=== PATIENT | female | born 1960 | race Caucasian/White ===

== ENCOUNTER 2023-02-08 11:24 | Outpatient (AMB) | payer OTHER, SELFPAY ==
--- NOTE | 2023-02-08 11:51 | AM.OFFWIN_ITS ---
Intake Vital Signs 02/08/23 11:54 02/08/23 11:54 Height 5 ft 2 in 5 ft 3 in Weight 189 lb 2 oz BMI 33.5 BP 110/72 Blood Pressure Location Rt brachial Position Sitting Pulse 84 Pulse Source Pulse Oximeter Temp 97.9 F Temp Source Temporal Artery Scan Pulse Oximetry (%) 98 Oxygen Delivery Method Room Air Intake Visit Reasons: EP, sore throat, cough ([phone]) Intake Note: pt is here for c/o sore throat, cough, and green mucus that started a few months ago but improved. Pt states it recently came back within the past few days. Patient Tobacco Use Status: Never used Tobacco Allergies codeine Adverse Reaction (Mild, Verified 02/08/23 11:52) Insomnia Do you need a note to return to daycare/school/sports/work: Yes HPI HPI Comments History of Present Illness Details 62-year-old female who presents for coug h chest congestion times 1 month. The intermittent lasting 3 or 4 days of the time. Denies fevers but does endorse chills denies nausea vomiting PFSH Social History (Updated 02/08/23 @ 11:56 by Meagan Chin MA) Alcohol intake: current Alcohol intake frequency: a few times a month Patient Tobacco Use Status: Never used Tobacco Review of Systems Resp Reports change in phlegm color, Reports chest congestion, Reports cough and Reports excessive phlegm production Physical Exam Vital Signs: Last Vital Signs Temp 97.9 F 02/08/23 11:54 Pulse 84 02/08/23 11:54 BP 110/72 02/08/23 11:54 Pulse Ox 98 02/08/23 11:54 Oxygen Delivery Method Room Air 02/08/23 11:54 BMI result Body Mass Index 33.5 Const General: cooperative, no acute distress and alert Orientation/consciousness: patient oriented x3 Limitations: no limitations HEENT Head: Yes normal to inspection Ears: hearing grossly normal bilaterally and external ears normal General nose exam: Normal external nose present Eyes General: appearance normal, both eyes and all related structures Neck Neck: Yes normal visual inspection Chest Chest palpation & inspection: normal inspection of the chest Resp Other: Fine crackles the upper lobes Effort & Inspection: normal respiratory effort, able to speak in complete sentences and no audible wheezes Cardio Rate: regular rate Rhythm: regular rhythm GI Inspection: Yes normal to inspection Palpation (GI): Soft to palpation and nontender Skin General skin exam: no rashes or lesions noted Neuro General: patient oriented x3 Psych Appearance: grossly normal Mental Status: mental status grossly normal Speech and movement: Normal speech and movement present Affect: normal affect Attitude: cooperative Thought process: Normal thought process present Thought content: Normal thought content present Assessment & Plan Assessment & Plan (1) Respiratory infection: Code(s): J98.8 - Other specified respiratory disorders Plan: ESS. Some fine crackles heard the upper lobe. Suspect upper respiratory versus lower respiratory tract infection of viral nature. Will should chest x-ray to evaluate for pneumonia. Chest x-ray negative for pneumonia. Likely bronchitis will prescribe symptomatic treatment Discharge instructions, follow up and treatment are discussed with patient in my usual fashion. Alternatives in treatment are also discussed. The patient will return for worsening symptoms or as needed. Advised that any labs/imaging ordered will be followed up on and contact made if further treatment needed. Counseled that patient's condition may require further evaluation and/or treatment. Symptoms of concern for worsening disorder discussed in detail in my customary manner. Patient does verbalize understanding of the plan, there are no apparent barriers to communication. The patient is given the opportunity to ask questions and have them answered to his/her satisfaction Orders: Orders XR chest 2V Today R05.9 - Cough, unspecified Medications: New albuterol sulfate 90 mcg/actuation 2 puffs inhalation 6XD PRN 6.7 grams 0RF shortness of breath or wheezing benzonatate 100 mg PO BID 10 caps 0RF prednisone 40 mg (2 x 20 mg) PO DAILY 10 tabs 0RF 5 days Patient Instructions: You were seen and evaluated for your cold-like symptoms. We cannot say for sure at this time examination is reassuring. We believe is likely suffering from a viral URI. Recommend continued symptomatic treatment using saline rinses Tylenol Motrin as needed. You have been prescribed albuterol prednisone and Tessalon Perles. You should return to clinic or the emergency department if you experience any new worsening symptoms such as chest pain, shortness of breath, nausea, vomiting, abdominal pain, or any concerning symptoms I mentioned above. Coding Level of Care Code Est Pt Level 3 (46256) Diagnoses Respiratory infection J98.8
[2023-02-08 11:54] VITALS: BP 110/72; PULSE 84; TEMP 36.6; O2SAT 98; BMI 33.5
== END 2023-02-08 12:44 | disposition home or self-care (01) ==
PROVIDERS: Visit Provider Physician Assistant
DX: J98.8 Other specified respiratory disorders (principal)
CPT/HCPCS: 99213

== ENCOUNTER 2023-02-08 12:20 | Outpatient (REF) | payer OTHER, SELFPAY ==
--- NOTE | ~2023-02-08 | XR_ITS ---
EXAMINATION: XR CHEST CLINICAL INFORMATION: Cough COMPARISON: None available. TECHNIQUE: 2 views of the chest were obtained. FINDINGS: Bilateral low lung volumes. Slight bibasilar atelectasis. No pneumothorax. Trachea is midline. Cardiomediastinal silhouette is not enlarged. No large pleural effusion. Slight levocurvature of the thoracolumbar spine. Soft tissues are unremarkable XR/XR chest 2V IMPRESSION: 1. Bilateral low lung volumes. 2. Slight bibasilar atelectasis.
== END 2023-02-08 12:21 | disposition home or self-care (01) ==
LOC: HO.HMGCX 12:20
PROVIDERS: PCP Family Medicine; Visit Provider Physician Assistant
DX: R05.9 Cough, unspecified (principal)
CPT/HCPCS: 71046

== ENCOUNTER 2024-11-20 12:14 | Outpatient (REF) | payer OTHER, SELFPAY ==
[2024-11-20 17:27] LABS: Resp Syncy Virus RNA Qual PCR NEGATIVE (Negative); SARS COV2 PCR INHOUSE NEGATIVE (Negative)
== END 2024-11-20 12:15 | disposition home or self-care (01) ==
LOC: HO.LNP 12:14
PROVIDERS: PCP Family Medicine; Visit Provider Physician Assistant Medical
DX: R09.89 Other specified symptoms and signs involving the circulatory and respiratory systems (principal); J02.9 Acute pharyngitis, unspecified; R05.9 Cough, unspecified; H66.002 Acute suppurative otitis media without spontaneous rupture of ear drum, left ear; Z13.89 Encounter for screening for other disorder; Z11.52 Encounter for screening for COVID-19
CPT/HCPCS: 87637; 87880

== ENCOUNTER 2024-11-20 12:14 | Outpatient (AMB) | payer OTHER, SELFPAY ==
--- OUTSIDE RECORDS SUMMARY | 2024-11-20 12:34 | XMS_ITS | Patient Health Record ---
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 Name Role Phone Kevin OWEN, Reena Primary Care Provider Eleonora Nino Unavailable [phone] Allergies Allergen (clinical drug ingredient) Drug/Non Drug Allergy documented on EMR Reaction Allergy Type Onset Date Status codeine Codeine Can't sleep Drug Allergy Activ e Reason For Referral No Information Medications Medication SIG (Take, Route, Fr equency, Duration) Notes Start Date End Date Status Levothyroxine Sodium Active Immunizations Vaccine Route Administration Date Status Comme nts Influenza Unknown 12/24/2023 Administered Social History Tobacco Use: Social History Observation Description Date Details (start date - stop date) Never Smoker NA - NA Tobacco use other than smoking: Question Answer Notes Are you an other tobacco user? No Tobacco Control (Standard) Question Answer Notes Tobacco use: Nonsmoker Additional Findings: Tobacco non-user Current no nsmoker AUDIT-C (Standard) Question Answer Notes Did you have a drink contain ing alcohol in the past year? Yes How often did you have a dri nk containing alcohol in the past year? 2 to 4 times a month (2 points) How many drinks did you have on a typical day when you were drinking in the past year? 1 or 2 drinks (0 point) How often did you have six o r more drinks on one occasion in the past year? 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 and Ingrown nail L60.0 Assessments Encounter Date Diagnosis (ICD Code) Assessment Notes Treatment Notes Treatment Clinical Notes Section Notes 10/31/2024 Pain in left ankle and joints of left foot (ICD-10 - M25.572) 10/31/2024 Pain in left foot (ICD-10 - M79.672) 10/31/2024 Bursitis of left foot (ICD-10 - M77.52) 10/31/2024 Tailor's bunion of left foot (ICD-10 - M21.622) 10/31/2024 Ingrown nail (ICD-10 - L60.0) Plan Of Treatment Pending Test Test Name Order Date X ray : Foot, left 3V 10/31/2024 [id number] Plate 10/31/2024 Insurance Providers Payer Name Payer Address Payer Phone Subscriber Number Group Number Insured Name Patient Relationship to Insured Coverage Start Date Coverage End Date [employer] [address] [place] [address] [id number] Tyra Christopher Self - patient is the insured Medical (General) History Medical History History ICD Code asthma covid-19 Measles Mumps thyroid Chicken pox Surgical History Surgery Date(Month/Year) rotator cuff tear repair 2022
--- NOTE | 2024-11-20 12:44 | AM.OFFWIN_ITS ---
Intake Vital Signs 11/20/24 12:45 Height 5 ft 3 in Weight 189 lb BMI 33.5 BP 128/64 Blood Pressure Location Lt brachial Position Sitting Pulse 79 Pulse Source Pulse Oximeter Temp 98.7 F Temp Source Oral Pulse Oximetry (%) 97 Oxygen Delivery Method Room Air Intake Visit Reasons: EP Ear infection, congestion Intake Note: presents with right ear pain, sinus and chest congestion with cough, right sided throat pain Patient Tobacco Use Status: Never used Tobacco Allergies codeine Adverse Reaction (Mild, Verified 11/20/24 12:45) Insomnia Do you need a note to return to daycare/school/sports/work: No HPI HPI Comments History of Present Illness Details History - The patient is a 64-year-old female pr esenting with symptoms of a cold and ear pain. - She reports a four-day history of symp toms including loss of voice, ear pain, congestion, and unilateral sore throat. - The ear pain is severe, causing tinnit us, and she notes sinus pressure and headaches. - The patient has a cough with yellowish sputum production and no significant fever, though her baseline temperature is low. - She denies shortness of breath or ches t pain, except for discomfort from coughing, and has been taking ibuprofen for ear pain without using cold medications. - She denies fever, chills, abd pain, n/ v/d. - She has no sick contacts or recent tra dulce maria. Physical Exam General: Cooperative, healthy appearing, comfortable and no acute distress Orientation/consciousness: Patient oriented x3 Limitations: No limitations Head: Normal to inspection Ears: Hearing grossly normal bilaterally, external ears normal and TM's red and swollen on one side Nose: Normal external nose present, normal nares present Face and sinus: Sinuses tender to palpation with a little sinus headache in the front. Mouth: Normal oral and palatal mucosa present and moist mucous membranes noted. Throat: Tonsils normal. Uvula is midline. Posterior oropharynx with erythema and no exudates. Eyes: Appearance normal, both eyes and all related structures Neck: Normal visual inspection, full ROM. No lymphadenopathy noted. Respiratory: Clear to auscultation bilaterally. Normal respiratory effort, able to speak in complete sentences. No respiratory distress, not tachypneic, no tripod positioning and no use of accessory muscles. Cardiovascular: Regular rate and rhythm. Normal S1 and S2 Skin: No rashes or lesions noted Patient was informed and verbally consented to the use of an ambient scribe for clinic note documentation during this visit [facility] Social History (Updated 02/08/23 @ 11:56 by Meagan Chin CMA) Alcohol intake: current Alcohol intake frequency: a few times a month Patient Tobacco Use Status: Never used Tobacco Review of Systems Const All systems reviewed & are unremarkable except as noted in HPI and below Physical Exam Vital Signs: Last Vital Signs Temp 98.7 F 11/20/24 12:45 Pulse 79 11/20/24 12:45 BP 128/64 11/20/24 12:45 Pulse Ox 97 11/20/24 12:45 Oxygen Delivery Method Room Air 11/20/24 12:45 BMI result Body Mass Index 33.5 Results AMB Rapid Strep AMB Rapid Strep Negative Last Edit by Verónica Recio MA on 11/20/24 15:25 Results Reviewed Results Reviewed: Laboratory Last Values Strep Scn Rapid Clinic Negative 11/20/24 13:43 Assessment & Plan Assessment & Plan (1) Cough: Code(s): R05.9 - Cough, unspecified Qualifiers: Cough type: acute Qualified Code(s): R05.1 - Acute cough (2) Left otitis media: Code(s): H66.92 - Otitis media, unspecified, left ear Qualifiers: Otitis media type: suppurative Chronicity: acute Recurrence: non- recurrent Spontaneous tympanic membrane rupture: without spontaneous rupture Qualified Code(s): H66.002 - Acute suppurative otitis media without spontaneous rupture of ear drum, left ear Plan Rapid strep negative in the office Plan - Prescribe antibiotics for acute otitis media. - Conduct a COVID-19 test due to the resurgence of cases. - Provide cough medicine to manage symptoms. -VSS, pt well appearing - tylenol or motrin as needed - follow up with PCP Orders: Orders SARS-CoV2/FLU/RSV Today R09.89 - Other specified symptoms and signs involving the circulatory and respiratory systems AMB Rapid Strep Screen Today Z13.9 - Encounter for screening, unspecified Medications: New amoxicillin-pot clavulanate 875-125 mg 1 tab PO Q12H PRN 14 tabs 0RF otitis media 7 days benzonatate 100 mg PO bid-tid PRN 21 caps 0RF Cough 7 days Coding Level of Care Code Est Pt Level 4 (53636) Diagnoses Acute cough R05.1 Cough type: acute Non-recurrent acute suppurative otitis media of left ear without spontaneous rupture of tympanic membrane H66.002 Otitis media type: suppurative Chronicity: acute Recurrence: non-recurrent Spontaneous tympanic membrane rupture: without spontaneous rupture
[2024-11-20 12:45] VITALS: BP 128/64; PULSE 79; TEMP 37.1; O2SAT 97; BMI 33.5
== END 2024-11-20 13:16 | disposition home or self-care (01) ==
PROVIDERS: PCP Family Medicine; Visit Provider Physician Assistant Medical
DX: R05.1 Acute cough (principal); H66.002 Acute suppurative otitis media without spontaneous rupture of ear drum, left ear; Z13.9 Encounter for screening, unspecified